=== PATIENT | female | born 1955 | race Caucasian/White ===

== ENCOUNTER 2022-01-04 18:46 | Emergency (ER) | payer MEDICARE, OTHER ==
[2022-01-04 18:55] VITALS: BP 170/90
[2022-01-04] MEDS ORDERED: DEXAMETHASONE 10 MG/ML VIAL PO STA (19:45)
[2022-01-04] MEDS ORDERED: CHERRY SYRUP 10 ML UDC PO ONE (19:45)
[2022-01-04] MEDS ORDERED: HYDROmorphone 1 MG/ML CARPUJECT IM STA (19:45)
[2022-01-04] MEDS ORDERED: KETOROLAC 60 MG/2 ML VIAL IM STA (19:45)
[2022-01-04] MEDS ORDERED: oxyCODONE 5 MG TABLET PO STA (21:16)
--- NOTE | 2022-01-04 21:18 | ED Physician Documentation ---
History of Present Illness - Stated complaint Stated Complaint: BACK PX/LT LEG NUMBNESS/NAUSEA - Chief complaint Chief Complaint: Back Pain - History obtained from History obtained from: Patient - History of Present Illness Pain level max: 9 Pain level now: 7 - Additonal information Additional information: Patient is a 66-year-old female who states that for the past 2-1/2 weeks she has had low back pain on the left side rating to the left leg. Worse with movement, better with rest. Has been using Tylenol and Motrin without relief. No loss of bowel or bladder control. Recently moved here from [place] and had a long car ride. Does not recall any significant trauma. No fevers. No chills. No IV drug use. No numbness or tingling. 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 : None HEENT: None Psych: None Musculoskeletal: Chronic back pain Other Past Medical History: 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 - Past Surgical History Past Surgical History: Yes Ortho: Rotator cuff repair, Other - Present Medications Home Medications: Ambulatory Orders Medication Instructions Recorded Confirmed Meloxicam [Mobic] 7.5 mg PO BID PRN #20 tablet 01/04/22 Ondansetron Odt [Zofran] 4 mg TL Q6H PRN #10 tablet 01/04/22 Oxycodone HCl/Acetaminophen 1 - 2 each PO Q6H PRN #14 tablet 01/04/22 [Percocet 5-325 mg Tablet] methylPREDNISolone [Medrol] 4 mg PO DAILY #1 pkg 01/04/22 - Allergies Allergies/Adverse Reactions: Allergies Allergy/AdvReac Type Severity Reaction Status Date / Time codeine Allergy Hives Verified 01/04/22 18:51 - Social History Does the pt smoke?: No Smoking Status: Never smoker - Immunizations Immunizations are current?: Yes PD ED PE NORMAL - Vitals Vital signs reviewed: Yes - General General: Alert and oriented X 3, No acute distress - HEENT HEENT: PERRL, Moist mucous membranes - Neck Neck: Supple, no meningeal sign - Cardiac Cardiac: RRR - Respiratory Respiratory: No respiratory distress, Clear bilaterally - Abdomen Abdomen: Soft, Non tender, Non distended - Back Back: No spinal TTP, Other (Tender to palpation over the left SI joint. No midline tenderness to palpation or percussion. No step-off or deformity) - Derm Derm: Warm and dry - Extremities Extremities: No edema, No calf tenderness / cord - Neuro Neuro: Alert and oriented X 3, No motor deficit, No sensory deficit, Other (Normal bilateral lower extremity patellar and ankle jerk reflexes. Normal great toe extension bilaterally. no saddle anesthesia) - Psych Psych: Normal mood, Normal affect Results - Vitals Vitals: Vital Signs - 24 hr 01/04/22 01/04/22 18:51 21:34 Temperature 36.5 C Heart Rate 77 Respiratory 16 18 Rate Blood Pressure 170/90 H O2 Saturation 98 Oxygen O2 Source Room air - Rads (name of study) Lumbar spine x-ray Radiology: Final report received, EMP read contemporaneously, See rad report PD MEDICAL DECISION MAKING - ED course Complexity details: reviewed results, re-evaluated patient, considered differential (No cauda equina, no spinal epidural abscess, no fracture, no aortic dissection or evidence of aneursym rupture), d/w patient, d/w family ED course: 66-year-old female with what appears to be left-sided sciatica. Will place on steroids, anti-inflammatories and pain medication for home. Pain well controlled here. No evidence of cauda equina, epidural abscess. No indication for emergent MRI. No acute neurological deficits. No loss of bowel or bladder control. Patient and family counseled regarding signs and symptoms for which I believe and urgent re-evaluation would be necessary. Patient with good understanding of and agreement to plan and is comfortable going home at this time This document was made in part using voice recognition software. While efforts are made to proofread this document, sound alike and grammatical errors may occur. IMPRESSION: 1. Mild leftward curvature centered at L3 and mild retrolisthesis in the upper lumbar spine. 2. Multilevel degenerative changes including moderate degenerative disc disease and facet arthropathy in the lower lumbar spine. Departure - Departure Disposition: 01 Home, Self Care Clinical Impression: Sciatica Qualifiers: Laterality: left Qualified Code(s): M54.32 - Sciatica, left side Condition: Good Instructions: ED Sciatica Follow-Up: Kai Claros MD [Primary Care Provider] - Within 1 week Prescriptions: methylPREDNISolone [Medrol] 4 mg PO DAILY #1 pkg Meloxicam [Mobic] 7.5 mg PO BID PRN #20 tablet PRN Reason: Pain Oxycodone HCl/Acetaminophen [Percocet 5-325 mg Tablet] 1 - 2 each PO Q6H PRN #14 tablet PRN Reason: pain Ondansetron Odt [Zofran] 4 mg TL Q6H PRN #10 tablet PRN Reason: Nausea / Vomiting Comments: Please follow-up with your doctor for further care. We will try treating you for sciatica and see how your symptoms progress. Your prescriptions were sent to the [facility] pharmacy. I am prescribing a short course of narcotic pain medication for you. These are potentially dangerous and addictive medications that should be used carefully. These medications may constipate you. Take an oxoj-spn-cmkhqth stool softener (docusate) twice daily with plenty of water while taking these medications. If you go 24 hours without a bowel movement, take khwi-fye-auewpzs miralax, per package instructions. Do not drink or drive while taking these medications. If you received narcotic or sedating medications while in the emergency department, do not drive for 24 hours. Store this medication in a safe, secure place and out of reach of children. It is a violation of federal law to give or sell this medication to another person or to use in a manner other than prescribed. The ED will not refill narcotic prescriptions, including prescriptions lost or stolen. To dispose of unwanted medications: 1. [facility] at [address] in [place] has a medication drop box. They accept prescription medications (in pill form) Saturday through Saturday 9:00 a.m. to 5:00 p.m. 2. The [facility] accepts prescription medications (in pill form only) for disposal year round. Call for more information. 3. Contact the [facility] for the next [facility] sponsored prescription drug collection event. , [phone], or [phone]; Discharge Date/Time: 01/04/22 21:35
--- NOTE | 2022-01-04 22:38 | XRAY Report ---
PROCEDURE: Lumbar Spine 2 View INDICATIONS: low back pain TECHNIQUE: 2 views of the lumbar spine were acquired. COMPARISON: None. FINDINGS: Bones: 5 [id number]-dkwdrsg vertebrae are present. There is a mild rightward curvature of the lumbar s pine centered at L3. There is mild retrolisthesis of T12 on L1, L1 on L2, and L2 on L3. Multilevel de generative disc disease demonstrated including moderate degeneration in the lower lumbar spine. There is also moderate facet arthropathy in the lower lumbar spine. No vertebral body compression fracture s. No suspicious bony lesions. Reformatted. No suspicious soft tissue calcifications. IMPRESSION: 1. Mild leftward curvature centered at L3 and mild retrolisthesis in the upper lumbar spine. 2. Multilevel degenerative changes including moderate degenerative disc disease and facet arthropathy in the lower lumbar spine. Reviewed by: Antonio Pressley MD on 01/04/2022 10:36 PM PDT Approved by: Antonio Pressley MD on 01/04/2022 10:36 PM PDT Station ID: [id number]
== END 2022-01-04 21:35 | disposition home or self-care (01) ==
LOC: ED 18:46
DX: M54.32 Sciatica, left side (principal); I10 Essential (primary) hypertension
CPT/HCPCS: 72100; 96372; 99283; 99284; A9270; J1170

== ENCOUNTER 2022-05-10 08:00 | Outpatient (CLI) | payer MEDICARE ==
--- NOTE | 2022-05-10 14:17 | XRAY Report ---
PROCEDURE: Knee 4 View BILAT INDICATIONS: BILAT KNEE PAIN TECHNIQUE: 4 views of the lateral knee(s) were acquired. COMPARISON: None. FINDINGS: Bones: No fractures or dislocations. No suspicious bony lesions. There is moderate to severe bilateral medial compartment and moderate patellofemoral compartment narr owing. Small periarticular osteophytes are present slightly more prominent on the right. No definitiv e erosions. Soft tissues: No joint effusion. No suspicious soft tissue calcifications. IMPRESSION: Bicompartmental arthritic changes above. Reviewed by: Lana Pedraza MD on 05/10/2022 2:16 PM PDT Approved by: Lana Pedraza MD on 05/10/2022 2:16 PM PDT Station ID: [id number]
== END 2022-05-10 23:59 | disposition home or self-care (01) ==
LOC: DI.WOS 08:00
PROVIDERS: ATTEND Physician Assistant
DX: M17.0 Bilateral primary osteoarthritis of knee (principal)

== ENCOUNTER 2022-05-11 09:51 | Outpatient (CLI) | payer MEDICARE ==
--- NOTE | 2022-05-11 13:24 | DEXA Report ---
PROCEDURE: Dexa Spine and/or Hip INDICATIONS: POST MENOPAUSAL TECHNIQUE: Dual energy x-ray absorptiometry (DXA) was performed on a [employer] System. Regions measur ed are the AP Spine, femoral neck, and if needed forearm. COMPARISON: None. FINDINGS: Lumbar Spine: Bone Mineral Density 1.316 g/cm/cm,T score 1.1, normal bone density Left Hip: Bone Mineral Density 0.902 g/cm/cm,T score -0.8, normal bone density Left Femoral Neck: Bone Mineral Density 0.71 g/cm/cm, T score -1.8, osteopenia (T score greater or equal to -1.0: NORMAL) (T score from -1.1 to -2.4: OSTEOPENIA) (T score less than or equal to -2.5 to: OSTEOPOROSIS) Impression: Osteopenia. Patient is at increased risk for fracture. Patients with diagnosis of osteoporosis or osteopenia should have regular bone mineral density assess ment. For those eligible for Medicare, routine testing is allowed once every 2 years. Testing frequ ency can be increased for patients who have rapidly progressing disease or for those who are receivin g medical therapy to restore bone mass. Reviewed by: Spenser Luo MD on 05/11/2022 1:23 PM PDT Approved by: Spenser Luo MD on 05/11/2022 1:23 PM PDT Station ID: [id number]
== END 2022-05-11 09:52 | disposition home or self-care (01) ==
LOC: DI 09:51
PROVIDERS: ATTEND Internal Medicine
DX: M85.88 Other specified disorders of bone density and structure, other site (principal); Z78.0 Asymptomatic menopausal state

== ENCOUNTER 2022-05-16 14:07 | Outpatient (CLI) | payer MEDICARE ==
[2022-05-16 14:54] VITALS: BP 140/86
--- NOTE | 2022-05-16 14:54 | SLEEP CARE CONSULTATION ---
Information from patient questionnaire entered by Daphne Aden MA. I have reviewed and concur with the information entered by Daphne Aden MA. This document represents the service I personally performed and the decisions made by , Angelique Wright ARNP. History of Present Illness Service Date and Time: 05/16/2022 1407 Reason for Visit: New patient, Previously diagnosed sleep apnea, sleep apnea on CPAP therapy Chief Complaint: reports: Insomnia, Snoring, Excessive daytime sleepiness, Fatigue, Other (update supplies) Date of Onset: 1 year Usual bedtime: 10 PM Time it takes to fall asleep: minutes Snores at night: Yes Observed to quit breathing while asleep: No Sleeps alone due to snoring: No Number of times waking at night: 0-1 Reasons for waking at night: reports: Bathroom Toss, Turn, or Twitch while sleeping: Yes Recalls having dreams: Yes Usually gets out of bed at: 6-8 AM Feels refreshed in the morning: Yes (not all the time) Morning headache: No Sleepy or fatigued during the day: Yes Ever fallen asleep while driving: No Takes day naps: Yes (4 days a week; last 30-60 minutes) Dreams during day naps: No Year and Where: 2020 [facility]; [place], [place] Type of Sleep Study: Home sleep study Additional HPI information: CARINE MYERS was previously diagnosed to have [mild][moderate][severe][very severe][extremely severe], AHI [], [obstructive][central] sleep apnea-hypopnea syndrome and comes in today to establish care [with spouse ][with partner ]for [CPAP][BIPAP] therapy. - Parasomnia Symptoms Ever been unable to move upon waking from sleep: No Walks in sleep: No Talks in sleep: No Ever acted out dreams in sleep: No Ever felt weak in the knees when startled or emotional: No Bothered by creepy, crawly, restless sensations in legs: Yes Problems with memory or concentration: Yes (both) CPAP Compliance Data - Data Reviewed with Patient Average duration of nightly device use: 6 hours 43 minutes Compliance rate %: 86 (166/180 days used) Current pressure setting (cmH2O): 5-15 Average residual AHI: 0.8 Central apnea: 0.2 Obstructive apnea: 0.3 Compliance data discussion: She states she has been getting [facility] in [place] and they do not ship supplies here to [place]. She is using a full face hybrid, size small. Subjective Missed days of use due to: reports: other (gets claustrophobia with mask on sometimes) Patient concerns: reports: air blowing in eyes (needs a different size mask), dry mouth, nose, throat. denies: aerophagia, mask discomfort, mask leak noise, condensation in mask/hose, nasal congestion, epistaxis Observed to snore while using device: No Current pressure setting perceived as: comfortable On therapy, patient: reports: sleeping better, awakening more refreshed, being more awake and alert during the day, more rested overall. 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 Patient is Single and lives in . Have you smoked in the past 12 months: No Alcohol use: Yes Alcohol amount and frequency: 0-1 times a week Caffeine use: Yes Caffeine amount and frequency: 5-6 times a week Family History Family history of sleep disordered breathing: Yes Family Hx Sleep Apnea: Father: Snoring, Sleep apnea - Untreated Allergies and Home Medications Drug allergies reviewed: Yes (Codeine) Home medication list reviewed: Yes Allergy and home medication list: Allergies codeine Allergy (Verified 05/16/22 1431) Hives Medications: Euthyrox 100 mcg daily Metformin 500 mg 2 tabs bid Atenolol 50 mg daily Famotidine 20 mg bid Citalopram 20 mg daily Lisinopril 40 mg daily HCTZ 10 mg daily Rosuvastatin 20 mg daily Amlodipine 10 mg daily Gabapentin 900 mg 3 times a day Review of Systems Weight gain over past 5 years: 15 Cardiovascular: reports: high blood pressure Respiratory: reports: shortness of breath Gastrointestinal: reports: nausea, diarrhea Ear/Nose/Throat: denies: tonsillectomy Endocrine: reports: thyroid disease Musculoskeletal: reports: joint pain, back pain, joint swelling Immunologic: denies: allergies to food or environment Physical Exam Vital signs obtained and entered by: GORDON WATKINS Blood Pressure: 140/86 Cuff size: regular Heart Rate: 106 O2 Saturation: 97 (3L OXYGEN) Height: 5 ft 2 in Weight: 177 lb 2 oz Body Mass Index: 32.3 BMI Classification: Obese Neck circumference: 15.5 Heart: regular rate and rhythm Lungs: clear bilaterally Impression and Plan 1. Obstructive Sleep Apnea-Hypopnea Syndrome, unknown, with good treatment compliance and good apnea control. On CPAP therapy, the patient has better sleep quality and is more rested overall. Patient did not have a copy of her sleep study. We will request a copy because her sleep study was done in 2020. She needs a new DME supplier and we will set her up with a new DME supplier. Patient used 3 L O2 NC all the time and it is bled through her CPAP at night. I will add this to her order. Patient's apnea severity and rationale for treatment to reduce apnea, improve sleep quality and reduce cardiovascular and cer ebrovascular events was reviewed. I also reviewed the benefit of consistent device use of CPAP for diabetes, gastric reflux and depression. 2. Obesity, unspecified. Currently patients BMI is 32.3. Obesity increases the risk of apnea, CPAP pressure requirements and overall health risks especially cardiovascular and diabetes. Thus patient is advised to lose weight. * Continue auto CPAP pressure at 5-15 cmH2O * Continue with 3L O2 bled through CPAP at night * Obtain copy of sleep study * Transfer DME * Update supplies * Notify me if snoring with mask or feeling that the pressure is too much or too little * Attempt to lose weight * Call this office if any problems using CPAP * Return for follow up in 1 year (if able to get copy of sleep study), or sooner if concerns arise Counseling Topics: Spare mask, Weight loss health impact Visit Type: In Office Time Spent with Patient (minutes): 31 Provider Statement: I spent 100% of the Face to Face Visit with the patient with greater than 50% spent counseling the patient and coordination of care.
== END 2022-05-16 14:08 | disposition home or self-care (01) ==
LOC: SC 14:07
PROVIDERS: ATTEND Nurse Practitioner Family
DX: G47.33 Obstructive sleep apnea (adult) (pediatric) (principal); E66.9 Obesity, unspecified; Z68.32 Body mass index [BMI] 32.0-32.9, adult; Z99.81 Dependence on supplemental oxygen; Z86.16 Personal history of COVID-19
CPT/HCPCS: 99203; G0463; 99212

== ENCOUNTER 2022-07-17 09:57 | Outpatient (CLI) | payer MEDICARE ==
--- NOTE | 2022-07-18 10:23 | Ultrasound Report ---
LIMITED ULTRASOUND OF LEFT BREAST AND AXILLA: 07/17/2022 CLINICAL: Patient returns today to evaluate a focal asymmetry in the left breast. Comparison is made to exams dated: 07/17/2022 mammogram, 05/11/2022 mammogram - [facility], and [facility]. Color flow and real-time ultrasound of the left breast retroareolar and axilla regions were performed . Bourgeois scale images of the real-time examination were reviewed. There is a 0.6 cm x 0.5 cm x 0.4 cm oval mass in the left breast at 9 o'clock in the retroareolar reg ion 1 cm from the nipple. This oval mass is hypoechoic. This correlates with mammography findings. Color flow imaging demonstrates that there is an adjacent vascularity. No significant abnormalities were seen sonographically in the left axilla. IMPRESSION: SUSPICIOUS OF MALIGNANCY The 0.6 cm x 0.5 cm x 0.4 cm oval mass in the left breast is at a moderate suspicion for malignancy. An ultrasound guided biopsy is recommended. No enlarged left axillary lymph nodes. Exam findings were discussed with the patient. This exam was interpreted at Station ID: [id number]. Electronically Signed By: Chemo Dillon M.D. slc/:07/17/2022 11:37:16 Ultrasound BI-RADS: 4b Moderate suspicion of malignancy BI-RADS CATEGORY: (4b) - Mod Susp Biopsy [id number] Immediate follow-up LATERALITY: (L)
--- NOTE | 2022-07-18 10:23 | Mammography Report ---
UNILATERAL LEFT DIGITAL DIAGNOSTIC MAMMOGRAM 3D/2D WITH SPOT COMPRESSION: 07/17/2022 CLINICAL: Patient returns today to evaluate a focal asymmetry in the left breast. Comparison is made to exams dated: 05/11/2022 mammogram - [facility] and 02/23/2013 mammogram - [facility]. The left breast is almost entirely fatty (category a/<25% glandular tissue). There is an oval focal asymmetry with a circumscribed margin in the left breast at 8 o'clock in the r etroareolar region. No other significant masses or calcifications are seen in the breast. IMPRESSION: INCOMPLETE: NEEDS ADDITIONAL IMAGING EVALUATION The oval focal asymmetry in the left breast is indeterminate. A targeted ultrasound is recommended and will immediately follow. Based on the Tyrer Cuzick model (a risk assessment model) the patients lifetime risk is 4.8% and her 10 year risk is 2.4%. According to the ACR, ACS, and NCCN guidelines, an annual breast MRI exam marie g with mammogram is recommended if the patients lifetime risk is 20% or greater. This exam was interpreted at Station ID: [id number]. NOTE: For mammograms, a report in lay terms will be sent to the patient. Approximately 15% of breast malignancies will not be visualized mammographically. In the management of a palpable breast mass, a negative mammogram must not discourage biopsy of a clinically suspicious lesion. Electronically Signed By: Chemo Dillon M.D. slc/:07/17/2022 10:33:19 ACR BI-RADS Category 0: Incomplete 3340F PARENCHYMAL PATTERN: (F) - The breast(s) demonstrate(s) diffuse fatty replacement. BI-RADS CATEGORY: (0) - 0 Ultrasound [id number] Immediate follow-up LATERALITY: (B)
== END 2022-07-17 09:58 | disposition home or self-care (01) ==
LOC: DI 09:57
PROVIDERS: ATTEND Internal Medicine
DX: N63.25 Unspecified lump in the left breast, overlapping quadrants (principal); E11.9 Type 2 diabetes mellitus without complications; E78.5 Hyperlipidemia, unspecified; I10 Essential (primary) hypertension; E03.9 Hypothyroidism, unspecified; M54.50 Low back pain, unspecified; R06.00 Dyspnea, unspecified; Z11.59 Encounter for screening for other viral diseases; E56.9 Vitamin deficiency, unspecified
CPT/HCPCS: 36415; 80053; 80061; 81599; 82043; 82306; 82570; 83036; 83721; 83880; 84443; 85025; 85379; 86803

== ENCOUNTER 2022-07-17 09:58 | Outpatient (CLI) | payer MEDICARE ==
[2022-07-17 10:16] LABS: BASOPHILS # (AUTO) 0.1 10^3/uL (0.0-0.1); BASOPHILS % (AUTO) 0.9 %; EOSINOPHILS # (AUTO) 0.4 10^3/uL (0.0-0.7); EOSINOPHILS % (AUTO) 4.6 %; HCT - HEMATOCRIT 32.7 % (37.0-47.0); HGB - HEMOGLOBIN 11.7 g/dL (12.0-16.0); LYMPHOCYTES # (AUTO) 2.3 10^3/uL (1.5-3.5); LYMPHOCYTES % (AUTO) 29.1 %; MEAN CORPUSCULAR HEMOGLOBIN 33.1 pg (27.0-31.0); MEAN CORPUSCULAR HGB CONC 35.8 g/dL (32.0-36.0); MEAN CORPUSCULAR VOLUME 92.4 fL (81.0-99.0); MEAN PLATELET VOLUME 10.4 fL (7.9-10.8); MONOCYTES # (AUTO) 0.6 10^3/uL (0.0-1.0); MONOCYTES % (AUTO) 6.8 %; NEUTROPHILS # (AUTO) 4.6 10^3/uL (1.5-6.6); NEUTROPHILS % (AUTO) 57.6 %; PLT - PLATELET COUNT 264 10^3/uL (130-450); RED BLOOD COUNT 3.54 10^6/uL (4.20-5.40); RED CELL DISTRIBUTION WIDTH 14.4 % (12.0-15.0); WHITE BLOOD COUNT 8.1 x10^3/uL (4.8-10.8)
[2022-07-17 10:48] LABS: THYROID STIMULATING HORMONE 3.86 uIU/mL (0.34-5.60)
[2022-07-17 11:03] LABS: ALBUMIN 4.1 g/dL (3.2-5.5); ALBUMIN/GLOBULIN RATIO 1.3 (1.0-2.2); ALKALINE PHOSPHATASE 75 IU/L (42-121); ALT ALANINE AMINOTRANSFERASE 59 IU/L (10-60); AST ASPARTATE AMINOTRANSFERASE 34 IU/L (10-42); BILIRUBIN,TOTAL < 0.2 mg/dL (0.2-1.0); BUN - BLOOD UREA NITROGEN 55 mg/dL (6-20); CALCIUM 9.6 mg/dL (8.5-10.3); CARBON DIOXIDE - CO2 20 mmol/L (21-32); CHLORIDE 97 mmol/L (101-111); CHOL/HDL RATIO 14.6 (<4.4); CHOLESTEROL 553 mg/dL; CREATININE 1.8 mg/dL (0.4-1.0); GFR - MDRD 28 (>89); GLUCOSE 162 mg/dL (70-100); HDL CHOLESTEROL 38 mg/dL; POTASSIUM 3.4 mmol/L (3.5-5.0); SODIUM 133 mmol/L (135-145); TOTAL PROTEIN 7.3 g/dL (6.7-8.2)
[2022-07-17 11:05] LABS: TRIGLYCERIDES > 2000 mg/dL
[2022-07-17 11:27] LABS: LDL CHOLESTEROL,DIRECT 10 mg/dL; LDLD/HDL RATIO 0.3 (<4.4)
[2022-07-17 11:54] LABS: CREATININE,URINE 137.8 mg/dL; MICROALBUM/CREATININE RATIO,UR 29.8 ug/mg (<30.0); MICROALBUMIN,URINE 4.1 mg/dL (0-300.0)
[2022-07-17 13:04] LABS: ESTIMATED AVERAGE GLUCOSE 171 mg/dL (70-100); HEMOGLOBIN A1c% 7.6 % (4.27-6.07)
[2022-07-18 03:09] LABS: HCV AB <0.1 s/co ratio (0.0-0.9)
== END 2022-07-17 09:59 | disposition home or self-care (01) ==
LOC: LAB 09:58
PROVIDERS: ATTEND Internal Medicine
DX: E11.9 Type 2 diabetes mellitus without complications (principal); E78.5 Hyperlipidemia, unspecified; I10 Essential (primary) hypertension; E03.9 Hypothyroidism, unspecified; M54.50 Low back pain, unspecified; R06.00 Dyspnea, unspecified; Z11.59 Encounter for screening for other viral diseases; E56.9 Vitamin deficiency, unspecified
CPT/HCPCS: 36415; 80053; 80061; 81599; 82043; 82306; 82570; 83036; 83721; 83880; 84443; 85025; 85379; 86803

== ENCOUNTER 2022-07-26 09:39 | Outpatient (CLI) | payer MEDICARE ==
[~2022-07-26 09:39] MED LIST: LIDOCAINE 1%-EPI 1:100000 20 ML MDV ONE; LIDOCAINE-MPF 1% 5 ML VIAL ONE
[2022-07-26] MEDS ORDERED: LIDOCAINE 1%-EPI 1:100000 20 ML MDV SUBQ ONE (10:58)
[2022-07-26] MEDS ORDERED: LIDOCAINE-MPF 1% 5 ML VIAL TD ONE (10:59)
--- NOTE | 2022-07-27 11:36 | Mammography Report ---
UNILATERAL LEFT DIGITAL DIAGNOSTIC MAMMOGRAM WITH LATEROMEDIAL POST-PROCEDURE IMAGING FOR MARKER PLAC EMENT: 07/26/2022 CLINICAL: Post left breast ultrasound biopsy clip placement imaging. Comparison is made to exams dated: 07/17/2022 mammogram and 07/17/2022 ultrasound - [facility]. The left breast is almost entirely fatty (category a/<25% glandular tissue). There is a marker clip in the appropriate position in the left breast at 10 o'clock in the retroareol ar region 1 cm from the nipple. IMPRESSION: POST PROCEDURE MAMMOGRAM FOR MARKER PLACEMENT There was a successful marker clip placement in the left breast in the retroareolar region. Based on the Tyrer Cuzick model (a risk assessment model) the patients lifetime risk is 4.8% and her 10 year risk is 2.4%. According to the ACR, ACS, and NCCN guidelines, an annual breast MRI exam marie g with mammogram is recommended if the patients lifetime risk is 20% or greater. This exam was interpreted at Station ID: [id number]. NOTE: For mammograms, a report in lay terms will be sent to the patient. Approximately 15% of breast malignancies will not be visualized mammographically. In the management of a palpable breast mass, a negative mammogram must not discourage biopsy of a clinically suspicious lesion. Electronically Signed By: Kathy lee/rahul:07/26/2022 13:59:23 ACR BI-RADS Category Post-procedure mammogram for marker placement PARENCHYMAL PATTERN: (F) - The breast(s) demonstrate(s) diffuse fatty replacement. BI-RADS CATEGORY: () - Unspecified - other recall n/a LATERALITY: (B)
--- NOTE | 2022-07-30 17:25 | Ultrasound Report ---
-- Reviewed by: Kathy Kidd MD on 07/30/2022 5:24 PM PST Approved by: Kathy Kidd MD on 07/30/2022 5:24 PM PST Station ID: [id number]
== END 2022-07-26 09:40 | disposition home or self-care (01) ==
LOC: DI 09:39
PROVIDERS: ATTEND Internal Medicine
DX: D05.12 Intraductal carcinoma in situ of left breast (principal)
CPT/HCPCS: 19083

== ENCOUNTER 2022-09-27 12:35 | Outpatient (CLI) | payer MEDICARE ==
[2022-09-27 20:50] LABS: BUN - BLOOD UREA NITROGEN 33 mg/dL (6-20); CALCIUM 9.7 mg/dL (8.5-10.3); CARBON DIOXIDE - CO2 22 mmol/L (21-32); CHLORIDE 103 mmol/L (101-111); CHOL/HDL RATIO 7.9 (<4.4); CHOLESTEROL 307 mg/dL; CREATININE 1.8 mg/dL (0.4-1.0); GFR - MDRD 28 (>89); GLUCOSE 313 mg/dL (70-100); HDL CHOLESTEROL 39 mg/dL; POTASSIUM 4.9 mmol/L (3.5-5.0); SODIUM 135 mmol/L (135-145); TRIGLYCERIDES 1676 mg/dL
[2022-09-27 20:54] LABS: ESTIMATED AVERAGE GLUCOSE 186 mg/dL (70-100); HEMOGLOBIN A1c% 8.1 % (4.27-6.07)
== END 2022-09-27 12:36 | disposition home or self-care (01) ==
LOC: LAB.S 12:35
PROVIDERS: ATTEND Internal Medicine
DX: I10 Essential (primary) hypertension (principal); E11.9 Type 2 diabetes mellitus without complications; E78.5 Hyperlipidemia, unspecified
CPT/HCPCS: 36415; 80048; 80061; 83036; 83721

== ENCOUNTER 2023-03-09 13:26 | Outpatient (CLI) | payer MEDICARE ==
[2023-03-09 13:58] LABS: BUN - BLOOD UREA NITROGEN 32 mg/dL (6-20); CALCIUM 10.6 mg/dL (8.5-10.3); CARBON DIOXIDE - CO2 20 mmol/L (21-32); CHLORIDE 102 mmol/L (101-111); CHOL/HDL RATIO 6.9 (<4.4); CHOLESTEROL 282 mg/dL; CREATININE 1.5 mg/dL (0.6-1.3); GFR - MDRD 35 (>89); GLUCOSE 338 mg/dL (74-104); HDL CHOLESTEROL 41 mg/dL; POTASSIUM 4.2 mmol/L (3.5-4.5); SODIUM 133 mmol/L (135-145)
[2023-03-09 14:08] LABS: TRIGLYCERIDES 1282 mg/dL (48-352)
[2023-03-09 14:08] LABS: CREATININE,URINE 90.7 mg/dL
[2023-03-09 14:18] LABS: ESTIMATED AVERAGE GLUCOSE 243 mg/dL (70-100); HEMOGLOBIN A1c% 10.1 % (4.27-6.07)
[2023-03-09 14:45] LABS: LDL CHOLESTEROL,DIRECT 104 mg/dL (75-193); LDLD/HDL RATIO 2.5 (<4.4)
== END 2023-03-09 13:27 | disposition home or self-care (01) ==
LOC: LAB 13:26
PROVIDERS: ATTEND Internal Medicine
DX: I10 Essential (primary) hypertension (principal); E11.9 Type 2 diabetes mellitus without complications; E78.5 Hyperlipidemia, unspecified; R79.89 Other specified abnormal findings of blood chemistry
CPT/HCPCS: 36415; 80048; 80061; 82570; 83036; 83721; 84156

== ENCOUNTER 2023-04-04 08:00 | Emergency (ER) | payer MEDICARE ==
[2023-04-04] MEDS ORDERED: ONDANSETRON 4 MG/2 ML VIAL IVP STA (08:48)
[2023-04-04] MEDS ORDERED: SODIUM CHLORIDE 0.9% 1,000 ML IV STA (08:48)
[2023-04-04] MEDS ORDERED: KETOROLAC 30 MG/ML VIAL IVP STA (08:48)
[2023-04-04] MEDS ORDERED: HYDROmorphone 1 MG/ML CARPUJECT IVP STA (08:48)
[2023-04-04 08:52] LABS: BILIRUBIN,URINE NEGATIVE (NEGATIVE); GLUCOSE, URINE (UA) >=1000 mg/dL (NEGATIVE); KETONES,URINE (UA) NEGATIVE (NEGATIVE); LEUKOCYTE ESTERASE, URINE NEGATIVE (NEGATIVE); NITRITE,URINE POSITIVE (NEGATIVE); OCCULT BLOOD,URINE SMALL (NEGATIVE); PH,URINE 5.5 PH (5.0-7.5); PROTEIN,URINE TRACE mg/dL (NEGATIVE); UROBILINOGEN,URINE 0.2 (NORMAL) E.U./dL (NORMAL)
[2023-04-04 08:53] LABS: CLARITY,URINE HAZY (CLEAR)
[2023-04-04 09:00] LABS: BACTERIA,URINE Moderate /HPF (None Seen); RBC,URINE 0-5 /HPF (0-5); SQUAMOUS EPITHELIAL CELL,UR FEW Squamous (<= Few)
[2023-04-04 09:04] LABS: BASOPHILS # (AUTO) 0.1 10^3/uL (0.0-0.1); BASOPHILS % (AUTO) 0.6 %; EOSINOPHILS % (AUTO) 0.3 %; HCT - HEMATOCRIT 38.1 % (37.0-47.0); LYMPHOCYTES # (AUTO) 0.9 10^3/uL (1.5-3.5); LYMPHOCYTES % (AUTO) 7.7 %; MEAN CORPUSCULAR HEMOGLOBIN 29.6 pg (27.0-31.0); MEAN CORPUSCULAR HGB CONC 31.5 g/dL (32.0-36.0); MEAN CORPUSCULAR VOLUME 94.1 fL (81.0-99.0); MEAN PLATELET VOLUME 9.9 fL (7.9-10.8); MONOCYTES # (AUTO) 0.5 10^3/uL (0.0-1.0); NEUTROPHILS # (AUTO) 9.7 10^3/uL (1.5-6.6); NEUTROPHILS % (AUTO) 86.4 %; PLT - PLATELET COUNT 289 10^3/uL (130-450); RED BLOOD COUNT 4.05 10^6/uL (4.20-5.40); RED CELL DISTRIBUTION WIDTH 14.1 % (12.0-15.0); WHITE BLOOD COUNT 11.2 x10^3/uL (4.8-10.8)
--- NOTE | 2023-04-04 09:10 | ED Physician Documentation ---
History of Present Illness - Stated complaint Stated Complaint: NAUSEA,VOMITTING, LT FLANK PX - Chief complaint Chief Complaint: Abd Pain - History obtained from History obtained from: Patient - Additonal information Additional information: The patient comes to the emergency department chief complaint of sudden onset of left flank pain early this morning around 1 clock. She states she had gone to bed feeling fine and had no symptoms whatsoever until the onset of pain. She states that she began to feel nauseated after the onset of pain and began vomiting. No fevers or chills. No dysuria. No gross blood in her urine. No history of kidney stones or diverticulitis. She has not been ill with anything recently. No respiratory symptoms. PD PAST MEDICAL HISTORY - Past Medical History Cardiovascular: Hypertension, High cholesterol Respiratory: Other Neuro: None Endocrine/Autoimmune: Type 2 diabetes, HyPOthyroidism GI: None CLINICAL EDUCATOR: None : None HEENT: None Psych: Depression Musculoskeletal: Osteoarthritis, Chronic back pain - Past Surgical History Past Surgical History: Yes Ortho: Rotator cuff repair, Other - Present Medications Home Medications: Ambulatory Orders Medication Instructions Recorded Confirmed Levothyroxine Sodium [Euthyrox] 100 mcg PO DAILY 05/23/22 04/04/23 Ondansetron HCl 4 mg PO DAILY PRN 05/23/22 04/04/23 glipiZIDE [Glipizide] 10 mg PO DAILY 05/23/22 04/04/23 Amlodipine Besylate [Norvasc] 10 mg PO DAILY 03/15/23 04/04/23 DULoxetine [Cymbalta] 30 mg PO DAILY 03/15/23 04/04/23 Gabapentin [Neurontin] 900 mg PO TID 03/15/23 04/04/23 Insulin Glargine,Hum.rec.anlog 16 unit SQ BID 03/15/23 04/04/23 [Insulin Glargine] Tamoxifen [Nolvadex] 10 mg PO DAILY 03/15/23 04/04/23 Empagliflozin [Jardiance] 10 mg PO DAILY 04/04/23 04/04/23 HYDROcod/ACETAM 5/325 [Rusk 5/325] 1 - 2 tablet PO Q6H PRN #10 tablet 04/04/23 Ondansetron Odt [Zofran] 4 mg TL Q6H PRN #10 tablet 04/04/23 hydroCHLOROthiazide [Hydrodiuril] 25 mg PO DAILY 04/04/23 04/04/23 levoFLOXacin [Levaquin] 500 mg PO QD #14 tablet 04/04/23 - Allergies Allergies/Adverse Reactions: Allergies Allergy/AdvReac Type Severity Reaction Status Date / Time codeine Allergy Hives Verified 01/04/22 18:51 - Social History Does the pt smoke?: No Smoking Status: Never smoker - Immunizations Immunizations are current?: Yes PD ED PE NORMAL - Vitals Vital signs reviewed: Yes - General General: Alert and oriented X 3, Well developed/nourished, Other (The patient appears significantly uncomfortable but otherwise in no apparent distress.) - HEENT HEENT: Atraumatic, PERRL, EOMI, Moist mucous membranes - Neck Neck: Supple, no meningeal sign - Cardiac Cardiac: RRR, No murmur - Respiratory Respiratory: No respiratory distress, Clear bilaterally - Abdomen Abdomen: Soft, Non tender, Non distended - Derm Derm: Normal color, Warm and dry, No rash - Extremities Extremities: No deformity - Neuro Neuro: Alert and oriented X 3 - Psych Psych: Normal mood, Normal affect Results - Vitals Vitals: Oxygen O2 Source Room air - Labs Labs: Microbiology 04/04/23 08:45 Urine Culture - Preliminary Urine,Random Laboratory Tests 04/04/23 04/04/23 04/04/23 08:45 08:57 08:57 WBC 11.2 H RBC 4.05 L Hgb 12.0 Hct 38.1 MCV 94.1 MCH 29.6 MCHC 31.5 L RDW 14.1 Plt Count 289 MPV 9.9 Neut # (Auto) 9.7 H Lymph # (Auto) 0.9 L [place] # (Auto) 0.5 Eos # (Auto) 0.0 Baso # (Auto) 0.1 Absolute Nucleated RBC 0.00 Nucleated RBC % 0.0 Sodium 133 L Potassium 4.8 H Chloride 103 Carbon Dioxide 21 Anion Gap 9.0 BUN 34 H Creatinine 1.4 H Estimated GFR (MDRD) 38 L Glucose 242 H Calcium 10.0 Total Bilirubin 0.5 AST 64 H ALT 84 H Alkaline Phosphatase 146 H Total Protein 8.4 Albumin 4.5 Globulin 3.9 Albumin/Globulin Ratio 1.2 Lipase 18 Urine Color YELLOW Urine Clarity HAZY Urine pH 5.5 Ur Specific [place] 1.020 Urine Protein TRACE Urine Glucose (UA) >=1000 H Urine Ketones NEGATIVE Urine Occult Blood SMALL H Urine Nitrite POSITIVE H Urine Bilirubin NEGATIVE Urine Urobilinogen 0.2 (NORMAL) Ur Leukocyte Esterase NEGATIVE Urine RBC 0-5 Urine WBC 4-5 Ur Squamous Epith Cells FEW Squamous Urine Bacteria Moderate H Ur Microscopic Review INDICATED Urine Culture Comments INDICATED - Rads (name of study) CT abdomen and pelvis no contrast Relevant Findings:: Final report received, See rad report (5 mm mid ureteral stone with mild obstruction.) PD Medical Decision Making - ED course Complexity details: reviewed results, re-evaluated patient, considered differential, d/w patient ED course: The patient had a positive urinalysis and also was found to have a 5 mm stone mid ureter. I spoke with Dr. Doherty, our on-call urologist and he felt the patient could be discharged on antibiotics with routine follow-up. Patient was feeling much better after symptomatic treatment here in the ED. She has been started on Levaquin here. I have given her the contact information for the urology clinic and we have discussed the usual indications for return. Departure - Departure Disposition: Home, Self Care Clinical Impression: Kidney stone on left side Urinary tract infection Qualifiers: Urinary tract infection type: acute cystitis Hematuria presence: with hematuria Qualified Code(s): N30.01 - Acute cystitis with hematuria Condition: Stable Instructions: ED UTI Cystitis Female, ED Stone Renal W Colic Follow-Up: Ollie Doherty MD [Provider Admit Priv/Credential] - Prescriptions: levoFLOXacin [Levaquin] 500 mg PO QD #14 tablet HYDROcod/ACETAM 5/325 [Rusk 5/325] 1 - 2 tablet PO Q6H PRN #10 tablet PRN Reason: Pain Ondansetron Odt [Zofran] 4 mg TL Q6H PRN #10 tablet PRN Reason: Nausea / Vomiting Comments: Your urinalysis shows a urinary tract infection, and your CT scan shows a stone in the mid ureter, or 2 between the kidney and bladder, on the left side. This appears to be in the process of passing and based on its size, should be able to pass on its own without difficulty. Your case has been discussed with our on- call urologist Dr. Doherty, and he is recommended antibiotics, plenty of fluids, and follow-up in their clinic as needed. In general, the stones will pass anywhere from some hours to several days, but occasionally may take up to 2 or 3 weeks. If you are not feeling better within the next week, please call Dr. Doherty's office to schedule follow-up appointment. If you begin to develop fevers, chills, or severe pain and burning when you urinate, please return to the emergency department for reevaluation. Your prescriptions have been electronically transmitted to the [facility] in [place], your pharmacy of choice on record. Forms: PCP List Discharge Date/Time: 04/04/23 12:07
[2023-04-04 09:18] LABS: ALBUMIN 4.5 g/dL (3.2-5.5)
[2023-04-04 09:30] LABS: ALBUMIN/GLOBULIN RATIO 1.2 (1.0-2.2); BILIRUBIN,TOTAL 0.5 mg/dL (0.2-1.0); CREATININE 1.4 mg/dL (0.6-1.3); POTASSIUM 4.8 mmol/L (3.5-4.5); TOTAL PROTEIN 8.4 g/dL (6.4-8.9)
--- NOTE | 2023-04-04 10:19 | CT Report ---
PROCEDURE: ABDOMEN/PELVIS WO INDICATIONS: L flank pain, sudden onset, NV TECHNIQUE: A CT scan of the abdomen and pelvis was performed without the use of intravenous contrast. Images we re recorded and evaluated at appropriate window settings. Reformats: coronal and sagittal. For radiat ion dose reduction, the following was used: automated exposure control, adjustment of mA and/or kV ac cording to patient size. COMPARISON: None. FINDINGS: Image quality: Excellent. Lung bases and heart: Patchy bibasilar atelectasis. Heart size is normal. Coronary atherosclerosis. P ostsurgical changes of the left breast subareolar region. Liver: Hepatic steatosis. Hepatomegaly Gallbladder and biliary tree: No radiopaque stones or wall thickening. No biliary dilation. Spleen: No splenomegaly. Pancreas: No pancreatic ductal dilation. Adrenals: No adrenal nodule. Kidneys and ureters: There is moderate left hydroureteronephrosis with moderate associated perinephri c/periureteral inflammatory stranding secondary to an obstructing 5 mm distal left ureteral stone whi ch measures approximately 400 Hounsfield units in density. This is seen on image 72/series 2. Right k idney is normal in appearance. No right nephrolithiasis or right ureteral stone. Bowel and peritoneum: No bowel distension. No pathologic free fluid. Diverticulosis without evidence of diverticulitis. Lymph nodes: No central or retroperitoneal adenopathy. Vessels: No infrarenal aortic aneurysm. PELVIS Reproductive organs: Unremarkable. Bladder: No wall thickness, accounting for underdistention. Pelvic lymph nodes: No pelvic adenopathy by size criteria. Bones: No aggressive osseous abnormality. Multilevel spondylosis of the imaged spine. No acute compre ssion fracture. Other: No significant ventral or inguinal hernia. IMPRESSION: Moderate left hydroureteronephrosis with associated perinephric/periureteral stranding secondary to a n obstructing 5 mm distal left ureteral stone. Colonic diverticulosis without acute diverticulitis. Atherosclerosis. Hepatomegaly with hepatic steatosis. Multilevel spondylosis. Reviewed by: Spenser Luo MD on 04/04/2023 10:18 AM PDT Approved by: Spenser Luo MD on 04/04/2023 10:18 AM PDT Station ID: [id number]
[2023-04-04] MEDS ORDERED: levoFLOXacin 250 MG TABLET PO STA (10:49)
[2023-04-04 12:09] VITALS: BP 140/82; O2SAT 100
== END 2023-04-04 12:07 | disposition home or self-care (01) ==
LOC: ED 08:00
DX: N30.91 Cystitis, unspecified with hematuria (principal); N13.6 Pyonephrosis; B96.89 Other specified bacterial agents as the cause of diseases classified elsewhere
CPT/HCPCS: 36415; 74176; 80053; 81001; 83690; 85025; 87077; 87086; 87181; 96374; 96375; 99284; A9270; J1170; 81003

== ENCOUNTER 2023-04-06 15:40 | Emergency (ER) | payer MEDICARE ==
[2023-04-06] MEDS ORDERED: SODIUM CHLORIDE 0.9% 1,000 ML IV STA ×3 (17:02→19:48)
[2023-04-06] MEDS ORDERED: ONDANSETRON 4 MG/2 ML VIAL IVP STA (17:23)
[2023-04-06 17:26] LABS: BASOPHILS % (AUTO) 0.8 %; EOSINOPHILS % (AUTO) 0.2 %; HCT - HEMATOCRIT 34.3 % (37.0-47.0); HGB - HEMOGLOBIN 11.1 g/dL (12.0-16.0); LYMPHOCYTES % (AUTO) 5.5 %; MEAN CORPUSCULAR HGB CONC 32.4 g/dL (32.0-36.0); MEAN CORPUSCULAR VOLUME 92.7 fL (81.0-99.0); MEAN PLATELET VOLUME 11.7 fL (7.9-10.8); NEUTROPHILS % (AUTO) 75.3 %; PLT - PLATELET COUNT 113 10^3/uL (130-450); RED CELL DISTRIBUTION WIDTH 14.6 % (12.0-15.0); WHITE BLOOD COUNT 24.7 x10^3/uL (4.8-10.8)
--- NOTE | 2023-04-06 17:26 | ED Physician Documentation ---
History of Present Illness - Stated complaint Stated Complaint: PEARSON,NAUSEA - Chief complaint Chief Complaint: General - History obtained from History obtained from: Patient - Additonal information Additional information: 67-year-old woman with long COVID, oxygen dependence and chronic nausea as well as bilateral chronic knee pain was seen by my partner 2 days ago for left flank pain. She was identified as having mild leukocytosis, mild HILARY, positive urinalysis which subsequently grew pansensitive E. coli, and a CT showing a 5 mm distal left ureteral stone. She has not had pain since that visit, but she had dry heaving and nausea, for the most part cannot keep down her meds and has not been able to tolerate her antihypertensives or antibiotics today and feels dehydrated. She denies fevers, chills, flank pain. 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 : None HEENT: None Psych: Depression Musculoskeletal: Osteoarthritis, Chronic back pain - Past Surgical History Past Surgical History: Yes Ortho: Rotator cuff repair, Other - Present Medications Home Medications: Ambulatory Orders Medication Instructions Recorded Confirmed Levothyroxine Sodium [Euthyrox] 100 mcg PO DAILY 05/23/22 04/04/23 Ondansetron HCl 4 mg PO DAILY PRN 05/23/22 04/04/23 glipiZIDE [Glipizide] 10 mg PO DAILY 05/23/22 04/04/23 Amlodipine Besylate [Norvasc] 10 mg PO DAILY 03/15/23 04/04/23 DULoxetine [Cymbalta] 30 mg PO DAILY 03/15/23 04/04/23 Gabapentin [Neurontin] 900 mg PO TID 03/15/23 04/04/23 Insulin Glargine,Hum.rec.anlog 16 unit SQ BID 03/15/23 04/04/23 [Insulin Glargine] Tamoxifen [Nolvadex] 10 mg PO DAILY 03/15/23 04/04/23 Empagliflozin [Jardiance] 10 mg PO DAILY 04/04/23 04/04/23 HYDROcod/ACETAM 5/325 [[place] 5/325] 1 - 2 tablet PO Q6H PRN #10 tablet 04/04/23 Ondansetron Odt [Zofran] 4 mg TL Q6H PRN #10 tablet 04/04/23 hydroCHLOROthiazide [Hydrodiuril] 25 mg PO DAILY 04/04/23 04/04/23 levoFLOXacin [Levaquin] 500 mg PO QD #14 tablet 04/04/23 - Allergies Allergies/Adverse Reactions: Allergies Allergy/AdvReac Type Severity Reaction Status Date / Time codeine Allergy Hives Verified 04/06/23 15:43 - Social History Does the pt smoke?: No Smoking Status: Never smoker Does the pt drink ETOH?: No Does the pt have substance abuse?: No - Immunizations Immunizations are current?: Yes PD ED PE NORMAL - Vitals Vital signs reviewed: Yes - General General: Alert and oriented X 3, No acute distress - Cardiac Cardiac: RRR, No murmur - Respiratory Respiratory: No respiratory distress, Clear bilaterally - Abdomen Abdomen: Normal bowel sounds, Soft, Non tender - Extremities Extremities: No edema, No calf tenderness / cord - Neuro Neuro: Alert and oriented X 3, Normal speech Results - Vitals Vitals: Vital Signs - 24 hr 04/06/23 04/06/23 04/06/23 15:43 17:46 20:00 Temperature 36.5 C 37.2 C 36.8 C Heart Rate 88 93 88 Respiratory 18 20 20 Rate Blood Pressure 92/60 98/64 82/56 L O2 Saturation 94 98 99 If not protocol 2 2 : Oxygen Flow, liters/minute Oxygen O2 Source Nasal cannula - Labs Labs: Laboratory Tests 04/06/23 04/06/23 04/06/23 17:17 17:17 17:17 WBC 24.7 H RBC 3.70 L Hgb 11.1 L Hct 34.3 L MCV 92.7 MCH 30.0 MCHC 32.4 RDW 14.6 Plt Count 113 L MPV 11.7 H Neut # (Auto) Not Reportable Lymph # (Auto) Not Reportable [place] # (Auto) Not Reportable Eos # (Auto) Not Reportable Baso # (Auto) Not Reportable Absolute Nucleated RBC Not Reportable Total Counted 100 Band Neuts % (Manual) 0 Abnorm Lymph % (Manual) 0 Nucleated RBC % Not Reportable Neutrophils # (Manual) 22.5 H Lymphocytes # (Manual) 1.7 Monocytes # (Manual) 0.2 Eosinophils # (Manual) 0.0 Basophils # (Manual) 0.2 H Differential Comment MANUAL DIFFERENTIAL Manual Slide Review Indicated Platelet Estimate DECREASED (<130,000) Platelet Morphology NORMAL APPEARANCE RBC Morph Micro Appear NORMAL APPEARANCE Sodium 129 L Potassium 4.0 Chloride 96 L Carbon Dioxide 14 L Anion Gap 19.0 H BUN 81 H* Creatinine 5.0 H Estimated GFR (MDRD) 9 L Glucose 114 H Lactic Acid 1.8 Calcium 8.9 Urine Color Urine Clarity Urine pH Ur Specific [place] Urine Protein Urine Glucose (UA) Urine Ketones Urine Occult Blood Urine Nitrite Urine Bilirubin Urine Urobilinogen Ur Leukocyte Esterase Urine RBC Urine WBC Ur Epithelial Cells Ur Squamous Epith Cells Urine Bacteria Ur Microscopic Review Urine Culture Comments SARS-CoV-2 (PCR) 04/06/23 04/06/23 18:15 21:00 WBC RBC Hgb Hct MCV MCH MCHC RDW Plt Count MPV Neut # (Auto) Lymph # (Auto) [place] # (Auto) Eos # (Auto) Baso # (Auto) Absolute Nucleated RBC Total Counted Band Neuts % (Manual) Abnorm Lymph % (Manual) Nucleated RBC % Neutrophils # (Manual) Lymphocytes # (Manual) Monocytes # (Manual) Eosinophils # (Manual) Basophils # (Manual) Differential Comment Manual Slide Review Platelet Estimate Platelet Morphology RBC Morph Micro Appear Sodium Potassium Chloride Carbon Dioxide Anion Gap BUN Creatinine Estimated GFR (MDRD) Glucose Lactic Acid Calcium Urine Color YELLOW Urine Clarity CLOUDY Urine pH 5.0 Ur Specific [place] 1.020 Urine Protein 100 H Urine Glucose (UA) NEGATIVE Urine Ketones NEGATIVE Urine Occult Blood MODERATE H Urine Nitrite NEGATIVE Urine Bilirubin NEGATIVE Urine Urobilinogen 0.2 (NORMAL) Ur Leukocyte Esterase SMALL H Urine RBC 11-25 H Urine WBC >25 H Ur Epithelial Cells FEW Transitional Ur Squamous Epith Cells RARE Squamous Urine Bacteria Few Ur Microscopic Review INDICATED Urine Culture Comments INDICATED SARS-CoV-2 (PCR) NOT DETECTED - Rads (name of study) CT KUB showing persistent obstruction with a distal left ureteral stone. New bibasilar atelectasis, diverticulosis and hepatomegaly. Relevant Findings:: Final report received, EMP independent interpretation of test PD Medical Decision Making - ED course ED course: 67-year-old woman with recent 5 mm ureteral stone and UTI now presents with persistent vomiting and soft blood pressure. She has no persistent renal colic pain, but on work-up here she has a significant leukocytosis of 24,000, and severe HILARY with prerenal azotemia. Lactic acid is normal. She was given 2 L of crystalloid, blood cultures were ordered as well as a dose of IV levofloxacin. She was given some hydromorphone but that is more for her usual aches and pains of bone and joint as she was not having renal colic pain. She will need to be hospitalized for the HILARY, but the question arose of whether she still has an obstructing stone with pyelonephritis in which case she would need to be transferred as we do not have urology on-call so CT will be repeated. CT KUB showing persistent stone. I did reach out to Dr. Doherty our urologist who unfortunately is out of town [place] and does agree with urgent transfer. The health community arts worker is calling around but initial attempts at transfer were refused by [facility] [place], and [place] due to capacity. I asked the health community arts worker to reach out to the [facility] as the patient does need urgent transfer as she is septic with an obstructed stone. [facility] to take her and I discussed the case by phone with Dr. Peg Fall, urology at [facility] at [phone] who accepts pending bed availability. [facility] Confirmation of bed availability at [facility] was received approximately 10 PM and [facility] was activated for transport. updated by phone, he is available at [phone]. - Critical Care Time(min): 45 Time Includes: Direct patient care, Review records, Reassess patient, Document care, Coordinate care, Medical consult, Family consult for tx dec Data interpretation: Labs, Pulse ox Procedures included in critical care time: Peripheral IV Departure - Departure Disposition: 02 Transfer Acute Care Hosp Clinical Impression: Kidney stone on left side Sepsis Qualifiers: Sepsis type: Escherichia coli Sepsis acute organ dysfunction status: with acute organ dysfunction Severe sepsis acute organ dysfunction type: acute renal failure Acute renal failure type: unspecified Severe sepsis shock status: without septic shock Qualified Code(s): A41.51 - Sepsis due to Escherichia coli [E. coli] Urinary tract infection Qualifiers: Urinary tract infection type: acute pyelonephritis Qualified Code(s): N10 - Acute pyelonephritis Acute renal failure Qualifiers: Acute renal failure type: unspecified Qualified Code(s): N17.9 - Acute kidney failure, unspecified Condition: Critical Forms: PCP List
[2023-04-06 17:29] LABS: SLIDE REVIEW? Indicated
[2023-04-06 17:43] LABS: ABNORMAL LYMPHS % (MANUAL) 0 %; BAND NEUTROPHILS % (MANUAL) 0 %
[2023-04-06 17:48] LABS: CALCIUM 8.9 mg/dL (8.5-10.3)
[2023-04-06] MEDS ORDERED: levoFLOXacin 500 MG/100 ML 500 MG/100 ML BAG IV STA (17:49)
[2023-04-06 17:51] LABS: BASOPHILS # (MANUAL) 0.2 10^3/uL (0-0.1); BASOPHILS % (MANUAL) 1 %; LYMPHOCYTES # (MANUAL) 1.7 10^3/uL (1.5-3.5); LYMPHOCYTES % (MANUAL) 7 %; MONOCYTES # (MANUAL) 0.2 10^3/uL (0.0-1.0); NEUTROPHILS # (MANUAL) 22.5 10^3/uL (1.5-6.6); RBC MORPHOLOGY (MULTIPLE) NORMAL APPEARANCE (NORMAL)
[2023-04-06 17:52] LABS: DIFFERENTIAL COMMENT MANUAL DIFFERENTIAL; PLATELET ESTIMATE, MANUAL DECREASED (<130,000) (NORMAL); PLATELET MORPHOLOGY NORMAL APPEARANCE (NORMAL)
[2023-04-06] MEDS ORDERED: HYDROmorphone 1 MG/ML CARPUJECT IVP STA ×2 (17:54→19:21)
[2023-04-06 18:26] LABS: BILIRUBIN,URINE NEGATIVE (NEGATIVE); GLUCOSE, URINE (UA) NEGATIVE (NEGATIVE); KETONES,URINE (UA) NEGATIVE (NEGATIVE); LEUKOCYTE ESTERASE, URINE SMALL (NEGATIVE); NITRITE,URINE NEGATIVE (NEGATIVE); OCCULT BLOOD,URINE MODERATE (NEGATIVE); PROTEIN,URINE 100 mg/dL (NEGATIVE); UROBILINOGEN,URINE 0.2 (NORMAL) E.U./dL (NORMAL)
[2023-04-06 18:34] LABS: CLARITY,URINE CLOUDY (CLEAR); EPITHELIAL CELLS,UR FEW Transitional /HPF (<= Few); SQUAMOUS EPITHELIAL CELL,UR RARE Squamous (<= Few); WBC,URINE >25 /HPF (0-5)
[2023-04-06 18:35] LABS: BACTERIA,URINE Few /HPF (None Seen)
--- NOTE | 2023-04-06 19:29 | CT Report ---
PROCEDURE: ABDOMEN/PELVIS WO INDICATIONS: Recent ureteral stone, pain-free but HILARY/sepsis TECHNIQUE: A CT scan of the abdomen and pelvis was performed without the use of intravenous contrast. Images we re recorded and evaluated at appropriate window settings. Reformats: coronal and sagittal. For radiat ion dose reduction, the following was used: automated exposure control, adjustment of mA and/or kV ac cording to patient size. COMPARISON: CT abdomen and pelvis 04/04/2023. FINDINGS: Image quality: Excellent. Lung bases and heart: Bibasilar subsegmental atelectasis versus consolidation. Heart is normal in siz e. Moderate coronary artery desiccation. Liver: Hepatic steatosis. Hepatomegaly. Gallbladder and biliary tree: No radiopaque stones or wall thickening. No biliary dilation. Spleen: No splenomegaly. Pancreas: No pancreatic ductal dilation. Adrenals: No adrenal nodule. Kidneys and ureters: No significant change in moderate left hydroureteronephrosis with a stone in the distal left ureter measuring 5 mm. There is associated enlargement of the left kidney and perinephri c stranding. No right renal stones or hydronephrosis. Bowel and peritoneum: No bowel distension. No pathologic free fluid. Diverticulosis without evidence of diverticulitis. Lymph nodes: No central or retroperitoneal adenopathy. Vessels: No infrarenal aortic aneurysm. Atherosclerotic vascular calcifications. PELVIS Reproductive organs: Unremarkable. Bladder: No wall thickness, accounting for underdistention. Pelvic lymph nodes: No pelvic adenopathy by size criteria. Bones: No aggressive osseous abnormality. Other: No significant ventral or inguinal hernia. IMPRESSION: 1.No significant change in moderate left hydroureteronephrosis with associated perinephric and periur eteral stranding secondary to a nonobstructing 5 mm stone in the distal left ureter. 2.New bibasilar subsegmental atelectasis versus consolidation. 3.Diverticulosis without evidence of acute diverticulitis. 4.Hepatomegaly and hepatic steatosis. Reviewed by: Arnav Colbert MD on 04/06/2023 7:28 PM PDT Approved by: Arnav Colbert MD on 04/06/2023 7:28 PM PDT Station ID: [id number]
[2023-04-06 22:32] VITALS: BP 92/57; O2SAT 100
== END 2023-04-06 22:48 | disposition short-term general hospital (02) ==
LOC: ED 15:40
DX: A41.51 Sepsis due to Escherichia coli [E. coli] (principal); N20.0 Calculus of kidney; N10 Acute pyelonephritis; N17.9 Acute kidney failure, unspecified; I10 Essential (primary) hypertension; E11.9 Type 2 diabetes mellitus without complications; Z79.84 Long term (current) use of oral hypoglycemic drugs; Z99.81 Dependence on supplemental oxygen; Z20.822 Contact with and (suspected) exposure to COVID-19
CPT/HCPCS: 36415; 74176; 80048; 81001; 83605; 85025; 87040; 87086; 87635; 96365; 96375; 96376; 99285; 99291; J1170; 81003

== ENCOUNTER 2023-06-04 12:18 | Outpatient (CLI) | payer MEDICARE ==
[2023-06-04 12:37] LABS: BASOPHILS # (AUTO) 0.1 10^3/uL (0.0-0.1); EOSINOPHILS # (AUTO) 0.1 10^3/uL (0.0-0.7); EOSINOPHILS % (AUTO) 2.3 %; HCT - HEMATOCRIT 37.5 % (37.0-47.0); HGB - HEMOGLOBIN 12.1 g/dL (12.0-16.0); LYMPHOCYTES # (AUTO) 1.9 10^3/uL (1.5-3.5); LYMPHOCYTES % (AUTO) 30.8 %; MEAN CORPUSCULAR HEMOGLOBIN 30.1 pg (27.0-31.0); MEAN CORPUSCULAR HGB CONC 32.3 g/dL (32.0-36.0); MEAN CORPUSCULAR VOLUME 93.3 fL (81.0-99.0); MONOCYTES # (AUTO) 0.4 10^3/uL (0.0-1.0); MONOCYTES % (AUTO) 7.2 %; NEUTROPHILS # (AUTO) 3.6 10^3/uL (1.5-6.6); NEUTROPHILS % (AUTO) 58.4 %; PLT - PLATELET COUNT 247 10^3/uL (130-450); RED BLOOD COUNT 4.02 10^6/uL (4.20-5.40); RED CELL DISTRIBUTION WIDTH 14.4 % (12.0-15.0); WHITE BLOOD COUNT 6.1 x10^3/uL (4.8-10.8)
[2023-06-04 12:50] LABS: ALBUMIN 4.2 g/dL (3.2-5.5); ALBUMIN/GLOBULIN RATIO 1.3 (1.0-2.2); BILIRUBIN,TOTAL 0.5 mg/dL (0.2-1.0); CALCIUM 9.8 mg/dL (8.5-10.3); CREATININE 1.2 mg/dL (0.6-1.3); POTASSIUM 4.1 mmol/L (3.5-4.5); TOTAL PROTEIN 7.5 g/dL (6.4-8.9)
[2023-06-04 12:53] LABS: ESTIMATED AVERAGE GLUCOSE 183 mg/dL (70-100)
[2023-06-04 13:08] LABS: THYROID STIMULATING HORMONE 0.21 uIU/mL (0.34-5.60)
== END 2023-06-04 12:19 | disposition home or self-care (01) ==
LOC: LAB 12:18
PROVIDERS: ATTEND Family Medicine
DX: N13.9 Obstructive and reflux uropathy, unspecified (principal); E11.9 Type 2 diabetes mellitus without complications; Z79.4 Long term (current) use of insulin; E03.9 Hypothyroidism, unspecified
CPT/HCPCS: 36415; 80053; 83036; 84439; 84443; 85025

== ENCOUNTER 2023-06-04 12:19 | Outpatient (CLI) | payer MEDICARE ==
--- NOTE | 2023-06-05 12:38 | Mammography Report ---
BILATERAL DIGITAL DIAGNOSTIC MAMMOGRAM 3D/2D WITH SPOT COMPRESSION POST LUMPECTOMY: 06/04/2023 CLINICAL: Follow up of left breast cancer. Due for bilateral. Comparison is made to exams dated: 07/26/2022 mammogram, 07/17/2022 mammogram, and 05/11/2022 mammogra m - [facility]. There are scattered areas of fibroglandular density in both breasts (category b / 25%-50% glandular t issue). There are benign post operative findings in the left breast. No significant masses, calcifications, or other findings are seen in either breast. IMPRESSION: BENIGN There is no mammographic evidence of malignancy. A 1 year screening mammogram is recommended. This exam was interpreted at Station ID: [id number]. NOTE: For mammograms, a report in lay terms will be sent to the patient. Approximately 15% of breast malignancies will not be visualized mammographically. In the management of a palpable breast mass, a negative mammogram must not discourage biopsy of a clinically suspicious lesion. Electronically Signed By: John de leon/rahul:06/04/2023 21:19:26 letter sent: No_Letter ACR BI-RADS Category 2: Benign Finding(s) 3342F PARENCHYMAL PATTERN: (A) - The breast(s) demonstrate(s) scattered fibroglandular densities. BI-RADS CATEGORY: (2) - 2 Mammogram [id number] 1 year screening LATERALITY: (B)
== END 2023-06-04 12:20 | disposition home or self-care (01) ==
LOC: DI 12:19
PROVIDERS: ATTEND Internal Medicine
DX: D05.12 Intraductal carcinoma in situ of left breast (principal); R92.323 Mammographic fibroglandular density, bilateral breasts

== ENCOUNTER 2023-06-09 05:12 | Emergency (ER) | payer MEDICARE ==
[2023-06-09 05:47] LABS: BASOPHILS # (AUTO) 0.1 10^3/uL (0.0-0.1); EOSINOPHILS # (AUTO) 0.1 10^3/uL (0.0-0.7); EOSINOPHILS % (AUTO) 2.3 %; HCT - HEMATOCRIT 36.2 % (37.0-47.0); HGB - HEMOGLOBIN 12.2 g/dL (12.0-16.0); LYMPHOCYTES # (AUTO) 0.6 10^3/uL (1.5-3.5); LYMPHOCYTES % (AUTO) 11.8 %; MEAN CORPUSCULAR HEMOGLOBIN 30.9 pg (27.0-31.0); MEAN CORPUSCULAR HGB CONC 33.7 g/dL (32.0-36.0); MEAN CORPUSCULAR VOLUME 91.6 fL (81.0-99.0); MEAN PLATELET VOLUME 10.4 fL (7.9-10.8); MONOCYTES # (AUTO) 0.3 10^3/uL (0.0-1.0); MONOCYTES % (AUTO) 6.5 %; NEUTROPHILS # (AUTO) 4.1 10^3/uL (1.5-6.6); PLT - PLATELET COUNT 211 10^3/uL (130-450); RED BLOOD COUNT 3.95 10^6/uL (4.20-5.40); RED CELL DISTRIBUTION WIDTH 14.6 % (12.0-15.0); WHITE BLOOD COUNT 5.3 x10^3/uL (4.8-10.8)
--- NOTE | 2023-06-09 05:53 | ED Physician Documentation ---
History of Present Illness - Stated complaint Stated Complaint: LT FLANK PX - Chief complaint Chief Complaint: UTI - History obtained from History obtained from: Patient - Additonal information Additional information: HPI from patient. Patient complains of left flank pain, sudden onset approximately 3 AM which woke her from sleep.She has had nausea but no vomiting. Patient says the pain is similar to renal colic she was experiencing in March, at which time she presented to this emergency department. On that visit, she was found to have a obstructing left ureteral stone, as well as UTI. She was transferred from this emergency department to the formerly [facility]. The patient says that she spent over a week in the hospital there, had the kidney stone removed and a stent placed. She says she was also treated in the intensive care unit at formerly [facility] for sepsis. Two days ago, patient had the stent removed by her urologist at [facility]. Patient s ays that the urologist did comment to her that there was an unusual amount of sediment accumulated on the proximal end of the stent. As a result, patient says that the urologist then used another instrument to retrieve as much of the sediment as he could from the proximal end of the ureter. Review of Systems Constitutional: denies: Fever, Chills, Sweats GI: reports: Nausea. 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 : None HEENT: None Psych: Depression Musculoskeletal: Osteoarthritis, Chronic back pain - Past Surgical History Past Surgical History: Yes Ortho: Rotator cuff repair, Other - Present Medications Home Medications: Ambulatory Orders Medication Instructions Recorded Confirmed Levothyroxine Sodium [Euthyrox] 100 mcg PO DAILY 05/23/22 04/04/23 Ondansetron HCl 4 mg PO DAILY PRN 05/23/22 04/04/23 glipiZIDE [Glipizide] 10 mg PO DAILY 05/23/22 04/04/23 Amlodipine Besylate [Norvasc] 10 mg PO DAILY 03/15/23 04/04/23 DULoxetine [Cymbalta] 30 mg PO DAILY 03/15/23 04/04/23 Gabapentin [Neurontin] 900 mg PO TID 03/15/23 04/04/23 Insulin Glargine,Hum.rec.anlog 16 unit SQ BID 03/15/23 04/04/23 [Insulin Glargine] Tamoxifen [Nolvadex] 10 mg PO DAILY 03/15/23 04/04/23 Empagliflozin [Jardiance] 10 mg PO DAILY 04/04/23 04/04/23 HYDROcod/ACETAM 5/325 [[place] 5/325] 1 - 2 tablet PO Q6H PRN #10 tablet 04/04/23 Ondansetron Odt [Zofran] 4 mg TL Q6H PRN #10 tablet 04/04/23 hydroCHLOROthiazide [Hydrodiuril] 25 mg PO DAILY 04/04/23 04/04/23 levoFLOXacin [Levaquin] 500 mg PO QD #14 tablet 04/04/23 - Allergies Allergies/Adverse Reactions: Allergies Allergy/AdvReac Type Severity Reaction Status Date / Time codeine Allergy Hives Verified 06/09/23 05:31 - Social History Does the pt smoke?: No Smoking Status: Never smoker Does the pt drink ETOH?: No Does the pt have substance abuse?: No - Immunizations Immunizations are current?: Yes - POLST Patient has POLST: No PD ED PE NORMAL - Vitals Vital signs reviewed: Yes - General General: Alert and oriented X 3, Well developed/nourished, Other (appears to be in moderate painful distress) - Cardiac Cardiac: RRR, No murmur - Respiratory Respiratory: No respiratory distress, Clear bilaterally - Abdomen Abdomen: Soft, Non tender, Non distended - Back Back: No CVA TTP Results - Vitals Vitals: Oxygen O2 Source Room air - Labs Labs: Laboratory Tests 06/09/23 06/09/23 06/09/23 05:30 05:30 05:30 WBC 5.3 RBC 3.95 L Hgb 12.2 Hct 36.2 L MCV 91.6 MCH 30.9 MCHC 33.7 RDW 14.6 Plt Count 211 MPV 10.4 Neut # (Auto) 4.1 Lymph # (Auto) 0.6 L Dougherty # (Auto) 0.3 Eos # (Auto) 0.1 Baso # (Auto) 0.1 Absolute Nucleated RBC 0.00 Band Neuts % (Manual) Not Reportable Abnorm Lymph % (Manual) Not Reportable Nucleated RBC % 0.0 Neutrophils # (Manual) Not Reportable Lymphocytes # (Manual) Not Reportable Monocytes # (Manual) Not Reportable Eosinophils # (Manual) Not Reportable Basophils # (Manual) Not Reportable Differential Comment MANUAL=AUTO DIFF Platelet Estimate NORMAL (130-450,000) Platelet Morphology NORMAL APPEARANCE Sodium 133 L Potassium 4.2 Chloride 106 Carbon Dioxide 18 L Anion Gap 9.0 BUN 35 H Creatinine 2.0 H Estimated GFR (MDRD) 25 L Glucose 234 H Calcium 9.1 Total Bilirubin 0.7 AST 111 H ALT 149 H Alkaline Phosphatase 199 H Total Protein 7.0 Albumin 3.8 Globulin 3.2 Albumin/Globulin Ratio 1.2 Lipase 45 Urine Color YELLOW Urine Clarity CLEAR Urine pH 6.0 Ur Specific Clancy 1.025 Urine Protein 100 H Urine Glucose (UA) NEGATIVE Urine Ketones TRACE Urine Occult Blood LARGE H Urine Nitrite NEGATIVE Urine Bilirubin NEGATIVE Urine Urobilinogen 1 (NORMAL) Ur Leukocyte Esterase NEGATIVE Urine RBC 11-25 H Urine WBC 0-3 Ur Squamous Epith Cells MOD Squamous H Urine Bacteria Rare Ur Microscopic Review INDICATED Urine Culture Comments NOT INDICATED - Rads (name of study) CT A/P without contrast Relevant Findings:: Prelim report reviewed, See rad report PD Medical Decision Making - ED course Complexity details: reviewed old records, reviewed results, re-evaluated patient, considered differential, d/w patient ED course: Mostly reassuring findings on tonight's blood tests and urinalysis. Patient has a normal white blood cell count (5.3), urinalysis shows 11-25 red blood cells per high-power field but no white blood cells, only rare bacteria as well as moderate squamous cells. This would suggest against UTI. BUN is 35, creatinine 2.0. BUN is comparable to outpatient result from 06/04/2023 (34), although her creatinine was 1.2 06/04, and today is 2.0. Notably, BUN was 84 and creatinine was 5.0 at the time she was transferred to [facility] in March. Mildly elevated AST (111) and ALT (149) with normal bilirubin noted. She has had mildly elevated transaminases on previous results although today's results are slightly higher than previous. CT of the abdomen and pelvis is interpreted by the radiologist as "moderate left sided hydronephrosis, similar to prior. Resolved left ureteral stone. The etiology of hydronephrosis could be due to recent passage of stone versus a sending infection." As noted above, the urinalysis is not consistent with infection. Patient is given 1 mg hydromorphone IV, and, on reevaluation, she is in no apparent distress and reports feeling significant relief of symptoms. Results discussed with patient (including the CT findings, the mildly elevated kidney function tests, and the mildly elevated transaminases. Given that there is no evidence of urologic-related infection, and no evidence of ureteral calculus or other s ource of obstruction, I suspect the hydronephrosis might be result of the recent instrumentation/removal of the stent. Possible contributing factor, or even causative etiology, could be that some of the sediment that was on the proximal end of the stent might have caused a transient obstruction of the left ureter with resolution of obstruction prior to completion of the CT scan. Return precautions discussed. Advised to contact her urologist for follow-up recommendation(s) (has scheduled appointment in one week, but I advised her to contact the urologist's office to see if they want to see her sooner than the scheduled appointment). Departure - Departure Disposition: 01 Home, Self Care Clinical Impression: Flank pain Condition: Good Instructions: ED Flank Pain Uncertain Cause Comments: The CT scan of your abdomen shows swelling of the left-sided ureter. Typically, this is caused by an obstruction such as a kidney stone. However, the radiologist specifically notes no evidence of kidney stone nor other potential cause of the obstruction of the ureter. There is no evidence of an infectious process on the urinalysis. Possible causes of the swelling of the ureter and, as result, the flank pain, would include the recent instrumentation (removal of the stent), kidney stone and/or sediment that was blocking the ureter but resolved prior to the CT scan being performed. Your kidney functions were elevated outside of the normal range. Your creatinine is mildly elevated above normal range today and was normal 06/04/23. However, it had been elevated on previous tests and was far higher when you were transferred from this ER to [facility] You should mention these results to your urologist (creatinine 2.0, BUN 35). Your liver enzyme tests (AST, ALT) were also mildly elevated today. These tests were elevated on some of your previous results in this ER, but higher than those previous abnormalities. However, the liver enzyme tests are not nearly abnormal enough to cause immediate concern/alarm. You should follow up with your primary care provider regarding reevaluation of these abnormal liver enzyme tests. Forms: PCP List Discharge Date/Time: 06/09/23 08:48
[2023-06-09 06:00] LABS: ALBUMIN 3.8 g/dL (3.2-5.5)
[2023-06-09 06:11] LABS: ALBUMIN/GLOBULIN RATIO 1.2 (1.0-2.2); BILIRUBIN,TOTAL 0.7 mg/dL (0.2-1.0); CALCIUM 9.1 mg/dL (8.5-10.3); POTASSIUM 4.2 mmol/L (3.5-4.5)
[2023-06-09] MEDS ORDERED: HYDROmorphone 1 MG/ML CARPUJECT IVP STA (06:14)
[2023-06-09 06:40] LABS: BILIRUBIN,URINE NEGATIVE (NEGATIVE); GLUCOSE, URINE (UA) NEGATIVE (NEGATIVE); KETONES,URINE (UA) TRACE mg/dL (NEGATIVE); LEUKOCYTE ESTERASE, URINE NEGATIVE (NEGATIVE); NITRITE,URINE NEGATIVE (NEGATIVE); OCCULT BLOOD,URINE LARGE (NEGATIVE); PROTEIN,URINE 100 mg/dL (NEGATIVE); UROBILINOGEN,URINE 1 (NORMAL) E.U./dL (NORMAL)
[2023-06-09 06:51] LABS: CLARITY,URINE CLEAR (CLEAR)
[2023-06-09 06:52] LABS: BACTERIA,URINE Rare /HPF (None Seen); SQUAMOUS EPITHELIAL CELL,UR MOD Squamous (<= Few); WBC,URINE 0-3 /HPF (0-5)
[2023-06-09 07:38] LABS: DIFFERENTIAL COMMENT MANUAL=AUTO DIFF; PLATELET ESTIMATE, MANUAL NORMAL (130-450,000) (NORMAL); PLATELET MORPHOLOGY NORMAL APPEARANCE (NORMAL)
--- NOTE | 2023-06-09 08:05 | CT Report ---
PROCEDURE: ABDOMEN/PELVIS WO INDICATIONS: left flank pain;ureteral stent removed 2 days ago TECHNIQUE: A CT scan of the abdomen and pelvis was performed without the use of intravenous contrast. Images we re recorded and evaluated at appropriate window settings. Reformats: coronal and sagittal. For radiat ion dose reduction, the following was used: automated exposure control, adjustment of mA and/or kV ac cording to patient size. COMPARISON: 04/06/2023 FINDINGS: Image quality: Excellent. Lung bases and heart: Decreased bibasilar atelectasis. Marked coronary calcifications for age. Liver: Hepatic steatosis. Gallbladder and biliary tree: No radiopaque stones or wall thickening. No biliary dilation. Spleen: No splenomegaly. Pancreas: No pancreatic ductal dilation. Adrenals: No adrenal nodule. Kidneys and ureters: Moderate left-sided hydronephrosis and hydroureter. Perinephric fat stranding. R esolved stone within the distal left ureter. Bowel and peritoneum: No bowel distension. No pathologic free fluid. Diverticulosis without evidence of diverticulitis. Lymph nodes: No central or retroperitoneal adenopathy. Vessels: No infrarenal aortic aneurysm. PELVIS Reproductive organs: Unremarkable. Bladder: No wall thickness, accounting for underdistention. Pelvic lymph nodes: No pelvic adenopathy by size criteria. Bones: No aggressive osseous abnormality. Degenerative disc disease of the spine, most prominent at L 3-4 and L4-5. Other: Small umbilical hernia containing fat. Left breast lumpectomy. IMPRESSION: Moderate left-sided hydronephrosis, similar to prior. Resolved left ureteral stone. The etiology of h ydronephrosis could be due to recent passage of stone versus ascending infection. Reviewed by: Yosi Shah on 06/09/2023 8:03 AM PDT Approved by: Yosi Shah on 06/09/2023 8:03 AM PDT Station ID: [id number]
[2023-06-09 08:08] VITALS: BP 108/64; O2SAT 99
== END 2023-06-09 08:48 | disposition home or self-care (01) ==
LOC: ED 05:12
DX: R10.9 Unspecified abdominal pain (principal); I10 Essential (primary) hypertension; E78.00 Pure hypercholesterolemia, unspecified; E11.9 Type 2 diabetes mellitus without complications; E03.9 Hypothyroidism, unspecified; Z79.899 Other long term (current) drug therapy; Z79.84 Long term (current) use of oral hypoglycemic drugs; Z79.4 Long term (current) use of insulin
CPT/HCPCS: 36415; 74176; 80053; 81001; 83690; 85025; 96374; 99284; J1170; 81003; 87086

== ENCOUNTER 2023-07-30 13:35 | Outpatient (CLI) | payer MEDICARE ==
--- NOTE | 2023-07-30 16:07 | XRAY Report ---
PROCEDURE: Abdomen 1 View X-Ray INDICATIONS: NEPHROLITHIASIS TECHNIQUE: One view of the abdomen acquired. COMPARISON: Renal ultrasound also performed today. CT abdomen pelvis 06/09/2023. FINDINGS: Surgical changes and devices: None. Bowel: No dilated loops of bowel seen. Soft tissues: No suspicious abdominal calcifications. Increased density in the region of the urinary bladder. This could be due to excreted contrast from outside CT. Visualized solid organ contours azael ear normal in size. Lung bases are clear. Bones: No suspicious bony lesions. IMPRESSION: No kidney stones identified. Reviewed by: Chemo Dillon MD on 07/30/2023 4:06 PM PST Approved by: Chemo Dillon MD on 07/30/2023 4:06 PM PST Station ID: [id number]
--- NOTE | 2023-07-30 20:53 | Ultrasound Report ---
PROCEDURE: Retroperitoneal INDICATIONS: NEPHROLITHIASIS TECHNIQUE: Real-time scanning was performed of the retroperitoneal organs, with image documentation. COMPARISON: None. FINDINGS: Kidneys: Kidneys are normal in size. Right kidney measures 10.6 cm long; left kidney measures 10.4 cm long. Right renal cortical thickness is 0.9 cm; left renal cortical thickness is 0.6 cm. No ethan d masses, hydronephrosis, or nephrolithiasis. Bladder: Pre-void bladder volume is 125.7 mL. Post-void residual is 2.9 mL. Pre-void images demons trate no intraluminal masses or stones. On pre-void images, bilateral ureteral jets are noted with c olor Doppler interrogation. (Of note, ureteral jets may not be detectable in up to 25% of cases due to insufficient differences in specific gravity between ureteral and bladder urine). Miscellaneous: No free abdominal fluid. IMPRESSION: Unremarkable renal ultrasound Reviewed by: Chuy Alford MD on 07/30/2023 8:52 PM PST Approved by: Chuy Alford MD on 07/30/2023 8:52 PM PST Station ID: [id number]
== END 2023-07-30 13:36 | disposition home or self-care (01) ==
LOC: DI 13:35
PROVIDERS: ATTEND Physician Assistant Surgical
DX: N20.0 Calculus of kidney (principal)

== ENCOUNTER 2023-10-04 09:39 | Outpatient (CLI) | payer MEDICARE ==
--- NOTE | 2023-10-04 10:07 | Sleep Patient Instructions ---
Sleep Center Visit Summary - Patient Visit Information Reason for Visit: Annual follow-up - Patient Instructions Additional Instructions: You will continue with CPAP therapy with pressure set at 5-15 cmH2O. A supply prescription will be updated with your DME. We encourage you to continue to try to lose weight. Please follow up with the sleep care office in 1 year. - Clinic Information Contact: [facility] [address] [place] [address] [email or web address] T: [phone]
--- NOTE | 2023-10-04 10:13 | SLEEP CARE CONSULTATION ---
Information from patient questionnaire entered by Aldo Bray. I have reviewed and concur with the information entered by Aldo Bray. This document represents the service I personally performed and the decisions made by , Angelique Wright ARNP. History of Present Illness Service Date and Time: 10/04/2023 0939 Previous diagnosis: Moderate, Obstructive Sleep Apnea-Hypopnea Syndrome AHI: 26.3 (02/08/2021) Reason for follow up: annual (LAST SEEN 05/2022) Equipment type: CPAP (RESMED Airsense 10, s/u 2020) Equipment obtained from: [employer] (getting supplies) Mask style: Full face Backup mask available: Yes Last cushion change: 3 months Year and Where: 2020 [facility]; [place], [place] Type of Sleep Study: Home sleep study HPI additional information: CARINE MYERS was diagnosed to have moderate, AHI 26.3, obstructive sleep apnea- hypopnea syndrome and returned today for CPAP therapy annual follow-up. Sleep Study - Results Type of Sleep Study: Home sleep study Year and Where: 2020 [facility]; [place], [place] CPAP Compliance Data - Data Reviewed with Patient Average duration of nightly device use: 7 HRS 37 MINS Compliance rate %: 90 (10/02/22-10/01/23; 334/365 days used) Current pressure setting (cmH2O): 5-15 Average residual AHI: 1.0 Central apnea: 0.1 Obstructive apnea: 0.6 Hypopnea: 0.3 Average large leak: 0 L/min On Oxygen: Yes (3 L) Subjective Missed days of use due to: reports: illness (in hospital for sepsis, dx afib) Patient concerns: reports: air blowing in eyes, mask leak noise. denies: aerophagia, mask discomfort, condensation in mask/hose, nasal congestion, dry mouth, nose, throat, epistaxis Observed to snore while using device: No Current pressure setting perceived as: comfortable On therapy, patient: reports: sleeping better, awakening more refreshed, being more awake and alert during the day, more rested overall. denies: drowsiness while driving Initial [place] Sleepiness Scale score: 10 (05/2022) Current [place] Sleepiness Scale score: 11 (10/04/23) Allergies and Home Medications Known drug allergies: Yes (as listed) Drug allergies reviewed: Yes Home medication list reviewed: Yes (Eliquis) Allergy and home medication list: Allergies codeine Allergy (Verified 10/02/23 10:13) Hives Home Medications Medication Instructions Recorded Confirmed Last Taken Type Levothyroxine Sodium [Euthyrox] 100 mcg PO DAILY 05/23/22 10/04/23 Unknown History Ondansetron HCl 4 mg PO DAILY PRN 05/23/22 10/04/23 Unknown History glipiZIDE [Glipizide] 10 mg PO DAILY 05/23/22 10/04/23 Unknown History Amlodipine Besylate [Norvasc] 10 mg PO DAILY 03/15/23 10/04/23 Unknown History DULoxetine [Cymbalta] 30 mg PO DAILY 03/15/23 10/04/23 Unknown History Gabapentin [Neurontin] 900 mg PO TID 03/15/23 10/04/23 Unknown History Insulin Glargine,Hum.rec.anlog 16 unit SQ BID 03/15/23 10/04/23 Unknown History [Insulin Glargine] Tamoxifen [Nolvadex] 10 mg PO DAILY 03/15/23 10/04/23 Unknown History Empagliflozin [Jardiance] 10 mg PO DAILY 04/04/23 10/04/23 Unknown History HYDROcod/ACETAM 5/325 [[place] 5/325] 1 - 2 tablet PO Q6H PRN #10 tablet 04/04/23 10/04/23 Unknown Rx Ondansetron Odt [Zofran] 4 mg TL Q6H PRN #10 tablet 04/04/23 10/04/23 Unknown Rx hydroCHLOROthiazide [Hydrodiuril] 25 mg PO DAILY 04/04/23 10/04/23 Unknown History levoFLOXacin [Levaquin] 500 mg PO QD #14 tablet 04/04/23 10/04/23 Unknown Rx Eliquis See Rx Instructions .ROUTE .COMPLEX 10/04/23 10/04/23 Unknown History Review of Systems Review of systems same as previous: No (A-FIB) Physical Exam Vital signs obtained and entered by: ALDO Brooks MA Blood Pressure: 137/69 (LEFT ARM) Cuff size: regular Heart Rate: 84 O2 Saturation: 96 (3 L/NC) Height: 5 ft 2 in Weight: 179 lb 6.4 oz Body Mass Index: 32.8 BMI Classification: Obese Impression and Plan 1. Obstructive Sleep Apnea-Hypopnea Syndrome, moderate, with good treatment compliance and good apnea control. On CPAP therapy, the patient has better sleep quality and is more rested overall. Patient states she got really sick and went to the hospital and they found that she was septic. During her hospital stay they found her in atrial fibrillation and she had to have a cardiac stent placed over at [facility]. Patient has significant improvement of their sleep apnea and is satisfied with current CPAP therapy. Patient denies problems with oral dryness, nasal congestion, epistaxis, skin irritation or aerophagia. Patient's apnea severity and rationale for treatment to reduce apnea, improve sleep quality and reduce cardiovascular and cerebrovascular events was reviewed. I also reviewed the benefit of consistent device use of CPAP for diabetes, gastric reflux, depression. New diagnosis for atrial fibrillation. 2. Obesity, unspecified. Currently patients BMI is 32.8. Obesity increases the risk of apnea, CPAP pressure requirements and overall health risks especially cardiovascular and diabetes. Thus patient is advised to lose weight. 3. Hypoxemia. Patient continues on 3 L oxygen continuously through nasal cannula. She continues to bleed oxygen through her CPAP at night * Continue auto CPAP pressure at 5-15 cmH2O * Update supply prescription * Oxygen adaptor for CPAP * Notify me if snoring with mask or feeling that the pressure is too much or too little * Attempt to lose weight * Call this office if any problems using CPAP * Return for follow up in 12 months, or sooner if concerns arise Counseling Topics: Weight loss health impact Prescriptions: Device supplies Follow up with Sleep Care in: 1 year Visit Type: In Office Time Spent with Patient (minutes): 20 Provider Statement: I spent 100% of the Face to Face Visit with the patient with greater than 50% spent counseling the patient and coordination of care.
[2023-10-04 10:18] VITALS: BP 137/69; O2SAT 96
== END 2023-10-04 09:40 | disposition home or self-care (01) ==
LOC: SC 09:39
PROVIDERS: ATTEND Nurse Practitioner Family
DX: G47.33 Obstructive sleep apnea (adult) (pediatric) (principal); R09.02 Hypoxemia; E66.9 Obesity, unspecified; Z68.32 Body mass index [BMI] 32.0-32.9, adult; Z99.81 Dependence on supplemental oxygen
CPT/HCPCS: 99213; G0463; 99212

== ENCOUNTER 2023-11-05 09:20 | Outpatient (CLI) | payer MEDICARE ==
[2023-11-05 10:03] LABS: ALBUMIN 4.1 g/dL (3.2-5.5); ALBUMIN/GLOBULIN RATIO 1.2 (1.0-2.2); ALKALINE PHOSPHATASE 158 IU/L (42-121); ALT ALANINE AMINOTRANSFERASE 68 IU/L (10-60); AST ASPARTATE AMINOTRANSFERASE 56 IU/L (10-42); BILIRUBIN,TOTAL 0.5 mg/dL (0.2-1.0); BUN - BLOOD UREA NITROGEN 48 mg/dL (6-20); CALCIUM 10.2 mg/dL (8.5-10.3); CARBON DIOXIDE - CO2 23 mmol/L (21-32); CHLORIDE 102 mmol/L (101-111); CHOL/HDL RATIO 9.8 (<4.4); CHOLESTEROL 332 mg/dL; CREATININE 1.4 mg/dL (0.6-1.3); GFR - MDRD 37 (>89); GLUCOSE 261 mg/dL (74-104); HDL CHOLESTEROL 34 mg/dL; POTASSIUM 4.4 mmol/L (3.5-4.5); SODIUM 132 mmol/L (135-145); TOTAL PROTEIN 7.4 g/dL (6.4-8.9)
[2023-11-05 10:03] LABS: CREATININE,URINE 69.4 mg/dL; MICROALBUM/CREATININE RATIO,UR 126.8 ug/mg (<30.0); MICROALBUMIN,URINE 8.8 mg/dL
[2023-11-05 10:11] LABS: ESTIMATED AVERAGE GLUCOSE 309 mg/dL (70-100); HEMOGLOBIN A1c% 12.4 % (4.27-6.07)
[2023-11-05 10:13] LABS: TRIGLYCERIDES 1669 mg/dL (48-352)
[2023-11-05 10:50] LABS: LDL CHOLESTEROL,DIRECT 77 mg/dL (75-193); LDLD/HDL RATIO 2.3 (<4.4)
== END 2023-11-05 09:21 | disposition home or self-care (01) ==
LOC: LAB 09:20
PROVIDERS: ATTEND Family Medicine
DX: E11.9 Type 2 diabetes mellitus without complications (principal); Z79.4 Long term (current) use of insulin; R94.4 Abnormal results of kidney function studies; N20.0 Calculus of kidney
CPT/HCPCS: 36415; 80053; 80061; 81001; 81003; 82043; 82570; 83036; 83721; 84681

== ENCOUNTER 2023-11-05 09:21 | Outpatient (CLI) | payer MEDICARE ==
[2023-11-05 09:47] LABS: BILIRUBIN,URINE NEGATIVE (NEGATIVE); GLUCOSE, URINE (UA) 100 mg/dL (NEGATIVE); KETONES,URINE (UA) NEGATIVE (NEGATIVE); LEUKOCYTE ESTERASE, URINE NEGATIVE (NEGATIVE); NITRITE,URINE NEGATIVE (NEGATIVE); OCCULT BLOOD,URINE TRACE-INTA (NEGATIVE); PH,URINE 5.5 PH (5.0-7.5); PROTEIN,URINE TRACE mg/dL (NEGATIVE); UROBILINOGEN,URINE 0.2 (NORMAL) E.U./dL (NORMAL)
[2023-11-05 09:51] LABS: CLARITY,URINE CLEAR (CLEAR)
== END 2023-11-05 09:22 | disposition home or self-care (01) ==
LOC: LAB 09:21
PROVIDERS: ATTEND Registered Nurse
DX: N20.0 Calculus of kidney (principal); E11.9 Type 2 diabetes mellitus without complications; Z79.4 Long term (current) use of insulin; R94.4 Abnormal results of kidney function studies
CPT/HCPCS: 36415; 80053; 80061; 81001; 81003; 82043; 82570; 83036; 83721; 84681

== ENCOUNTER 2023-11-29 14:37 | Outpatient (CLI) | payer MEDICARE ==
--- NOTE | 2023-11-29 16:23 | XRAY Report ---
PROCEDURE: Chest 2V INDICATIONS: PRODUCTIVE COUGH TECHNIQUE: 2 views of the chest were acquired. COMPARISON: None. FINDINGS: Surgical changes and devices: Partially visualized right shoulder arthroplasty. Lungs and pleura: No pleural effusions or pneumothorax. Lungs are clear. Mediastinum: Mediastinal contours appear normal. Heart size is mildly prominent. Bones and chest wall: No suspicious bony lesions. Overlying soft tissues appear unremarkable. IMPRESSION: No acute cardiopulmonary process. Reviewed by: Lana Pedraza MD on 11/29/2023 4:22 PM PDT Approved by: Lana Pedraza MD on 11/29/2023 4:22 PM PDT Station ID: [id number]
== END 2023-11-29 14:38 | disposition home or self-care (01) ==
LOC: DI 14:37
DX: R05.8 Other specified cough (principal)

== ENCOUNTER 2024-05-01 11:51 | Outpatient (CLI) | payer MEDICARE ==
[2024-05-01 12:01] LABS: BILIRUBIN,URINE NEGATIVE (NEGATIVE); GLUCOSE, URINE (UA) 250 mg/dL (NEGATIVE); KETONES,URINE (UA) NEGATIVE (NEGATIVE); LEUKOCYTE ESTERASE, URINE NEGATIVE (NEGATIVE); NITRITE,URINE POSITIVE (NEGATIVE); OCCULT BLOOD,URINE SMALL (NEGATIVE); PROTEIN,URINE 30 mg/dL (NEGATIVE); UROBILINOGEN,URINE 0.2 (NORMAL) E.U./dL (NORMAL)
[2024-05-01 12:19] LABS: BACTERIA,URINE Many /HPF (None Seen); CLARITY,URINE CLOUDY (CLEAR); SQUAMOUS EPITHELIAL CELL,UR FEW Squamous (<= Few)
== END 2024-05-01 11:52 | disposition home or self-care (01) ==
LOC: LAB 11:51
DX: R39.9 Unspecified symptoms and signs involving the genitourinary system (principal)
CPT/HCPCS: 81001; 87086; 87181